=== PATIENT | male | born 1970 | race African-American/Black ===

== ENCOUNTER 2017-12-02 00:24 | Emergency (ER) | payer OTHER | END 2017-12-02 02:45 | disposition home or self-care (01) | LOC: E/R 00:24 | DX: B00.1 Herpesviral vesicular dermatitis (principal); I10 Essential (primary) hypertension; Z87.891 Personal history of nicotine dependence | CPT/HCPCS: 99283; Z7502 ==

== ENCOUNTER 2018-03-13 20:34 | Emergency (ER) | payer OTHER | END 2018-03-13 23:23 | disposition home or self-care (01) | LOC: FTE 23:23 | DX: M75.42 Impingement syndrome of left shoulder (principal); I10 Essential (primary) hypertension; F17.210 Nicotine dependence, cigarettes, uncomplicated | CPT/HCPCS: 99283 ==